=== PATIENT | male | born 1945 | race Caucasian/White ===

== ENCOUNTER 2017-08-06 16:54 | Emergency (ER) | payer MEDICARE ==
[~2017-08-06] VITALS: Ht 180.3 cm; Wt 70.0 kg
[~2017-08-06 16:54] MED LIST: ENALAPRIL10 MG OR; ZIAC OR
[2017-08-06 17:49] LABS: ALBUMIN 4.3 g/dL (3.2-5.0); ALKALINE PHOSPHATASE 65 u/l (38-126); ANION GAP 24 (6-22 (CALC)); BILIRUBIN, TOTAL 0.5 mg/dL (0.0-1.4); BUN 12 mg/dL (8-23); BUN/CREATININE RATIO 12 (12-20 (CALC)); CARBON DIOXIDE 17 mmol/l (22-30); CHLORIDE 97 mmol/l (95-108); ETHYL ALCOHOL 256 mg/dl (0-30); GFR > 60 ML/MIN (>=60 (CALC)); GFR FOR AFR.AMER. > 60 ML/MIN (>=60 (CALC)); POTASSIUM 4.1 mmol/l (3.5-5.1); SGOT/AST 30 u/l (19-48); SGPT/ALT 45 u/l (11-66); SODIUM 134 mmol/l (137-146); TOTAL PROTEIN 7.4 g/dL (6.3-8.2)
[2017-08-06 18:02] VITALS: BP 125/83
== END 2017-08-06 18:13 ==
LOC: ED 16:54
PROVIDERS: Emergency Medicine
DX: F10.129 Alcohol abuse with intoxication, unspecified (principal); Y90.8 Blood alcohol level of 240 mg/100 ml or more; I10 Essential (primary) hypertension